=== PATIENT | female | born 1930 | race Caucasian/White ===

== ENCOUNTER → 2016-09-05 | Outpatient (CLI) | payer MEDICARE, BC | LOC: KOH-I 15:00 | DX: M54.9 Dorsalgia, unspecified (principal); M47.816 Spondylosis without myelopathy or radiculopathy, lumbar region | CPT/HCPCS: 72100; 72220 ==

== ENCOUNTER 2016-10-08 10:04 | Emergency (ER) | payer MEDICARE, BC | END 2016-10-08 11:02 | disposition home or self-care (01) | LOC: ER1 10:04 | DX: S61.254A Open bite of right ring finger without damage to nail, initial encounter (principal); E11.8 Type 2 diabetes mellitus with unspecified complications; I10 Essential (primary) hypertension; E78.5 Hyperlipidemia, unspecified; Z79.84 Long term (current) use of oral hypoglycemic drugs; Z90.710 Acquired absence of both cervix and uterus; Z90.49 Acquired absence of other specified parts of digestive tract; W54.0XXA Bitten by dog, initial encounter | CPT/HCPCS: 90471; 90715; 99283 ==